=== PATIENT | female | born 1995 | race Hispanic/Latino ===

== ENCOUNTER 2020-09-30 22:09 | Inpatient (IN) | payer OTHER ==
[~2020-09-30] VITALS: Ht 157.5 cm; Wt 78.3 kg
[2020-09-30 22:23] VITALS: BP 138/88
[2020-09-30] MEDS ORDERED: LACTATED RINGER'S 1000 ML IV STA (22:28)
[2020-09-30] MEDS ORDERED: OXYTOCIN DRIP 30 UNITS in IV 1 EA IV PRN (22:30)
[2020-09-30] MEDS ORDERED: LR 1,000 ML IV SCH (22:30)
[2020-09-30] MEDS ORDERED: OXYTOCIN 30 UNITS IN 0.9% NaCl 500ML IV BAG (J2590) As Ordered ONE (22:34)
[2020-09-30 22:44] LABS: HEMATOCRIT 33.6 % (36.0-47.0); HEMOGLOBIN 10.7 g/dl (12.0-15.5); MEAN CORPUSCULAR HEMOGLOBIN 26.1 pg (27.0-33.0); MEAN CORPUSCULAR HGB CONC 31.8 g/dl (32.0-36.5); PLATELET COUNT, AUTOMATED 293 10^3/uL (150-450); WHITE BLOOD COUNT 12.1 10^3/uL (4.0-10.0)
[2020-09-30] MEDS ORDERED: LIDOCAINE 1% MDV 20ML VIAL As Ordered ONE (22:46)
[2020-09-30 22:49] VITALS: BP 134/60
[2020-09-30] MEDS ORDERED: RHOGAM 300 MCG (1500 IU) INJ (J2790) IM SCH (23:05)
[2020-09-30] MEDS ORDERED: ACETAMINOPHEN 500 MG TAB PO PRN (23:05)
[2020-09-30] MEDS ORDERED: PROMETHAZINE 25 MG TAB PO PRN (23:05)
[2020-09-30] MEDS ORDERED: IBUPROFEN 800 MG TAB PO PRN (23:05)
[2020-09-30] MEDS ORDERED: ACETAMINOPHEN TAB 650MG DOSE (2X325MG) PO PRN (23:05)
[2020-09-30] MEDS ORDERED: IBUPROFEN 600MG TAB PO PRN (23:05)
[2020-09-30] MEDS ORDERED: MEASLES,MUMPS,RUBELLA VACCINE INJ (MMR-II) (90707) SC SCH (23:05)
[2020-09-30] MEDS ORDERED: DOCUSATE SODIUM 100MG CAPSULE PO PRN (23:05)
[2020-09-30] MEDS ORDERED: DIBUCAINE 1% OINTMENT 30GM TOP PRN (23:05)
[2020-09-30] MEDS ORDERED: LIDOCAINE 1% MDV 20ML VIAL IM ONE (23:05)
[2020-09-30 23:08] VITALS: BP 134/75
--- NOTE | 2020-09-30 23:12 | DNPDOC ---
[facility] Delivery Note Delivery Note DATE OF DELIVERY: 30Sep2020 at ~2245 PREDELIVERY DIAGNOSIS: 39+0 weeks gestation and active labor POST DELIVERY DIAGNOSIS: Delivered. 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 Rothman ANESTHESIA: None. ESTIMATED BLOOD LOSS: 200 mL. FINDINGS: 6lb 8 oz male infant, Score 9/9 DELIVERY SUMMARY: Maru presented to L&D in fulminant labor and precipitously delivered her infant. Cervical exam on presentation was Al/C/0. She felt a strong urge to push. AROM was performed productive of light meconium stained fluid. The bed was broken down and she was prepped for delivery. With excellent effort over 2 sets of pushes her baby delivered. Presentation was JERARDO with a compound right hand with then restitution to ROT. The left anterior shoulder then delivered with gentle traction followed easily by the remainder of the body. The was dried and stimulated on the field and a bulb suction was used. The was placed on the maternal abdomen and cried vigorously. The three vessel umbilical cord was then clamped and cut by Maru after appr opriate time delay and under my direction. Third stage was completed with gentle traction on on the cord and it was productive of an intact placenta. The uterus was firmed with massage and pitocin was administered IV bolus. Inspection of the cervix, vagina, labia, and perineum revealed a midline 2nd degree perineal laceration. This laceration was repaired with 3-0 vicryl suture in the usual fashion after injection of lidocaine for analgesia. There was excellent cosmesis and hemostasis after the repair. The fundus was palpated again and was firm. Sponge, instrument, and needle counts were correct X2. Mother and stable when I left the room. DO RAUDEL Gonzalez CHRISTOPHER J. DO Sep 30, 2020 23:12
--- NOTE | 2020-09-30 23:17 | HPEPDOC ---
Obstetrical History & Physical General Date of Admission Sep 30, 2020 at 22:30 History of Present Illness 24 yo presented to L&D in active labor and precipitously delivered her . See delivery note for details. Chief Complaint: Contractions, term Information Provided By: Patient Age: 24 : 2 Term: 1 Pre-term: 0 Abortions: 0 Livin Care Care: Good Care Dating Final EDC: Oct 07, 2020 Final EDC for Daily Update: Oct 07, 2020 Final EDC by: LMP Antepartum Course Diagnos(e)s Uncomplicated Past Medical History Past Obstetrical History : Past Obstetrical History: Multigravida ( at term in 2018) Type of Delivery: Spontaneous Vaginal Del. 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 ABDOMEN: Gravid and non-tender to touch. FETUS: Is vertex (VTX) by sterile vaginal examination (SVE), fetus is vertex EXTREMITIES: No edema. Laboratory Data 24H LABS Laboratory Tests 2 09/30/20 22:30: Nucleated Red Blood Cells % (auto) 0.0 09/30/20 23:02: Serology Scanned Report Hepatitis B Testing CBC/BMP Laboratory Tests 09/30/20 22:30 Urine Culture: No Growth Pertinent Laboratoy Data Blood Type: A+ RBC Antibody Screen: Negative HIV: Negative Hepatitis B: Negative Hepatitis C: Unknown Rapid Plasma Reagin: Nonreactive Rubella: Immune Varicella: Immune Chlamydia/Gonorrhea: Negative Group B Streptococcus: Negative Quad Screen Test: Negative Cystic Fibrosis: Unknown Glucose Tolerance Test: 104 Anatomy Ultrasound Placenta Location: Anterior Normal Anatomy: Yes Placenta Previa: No Steroid Therapy Steroid Therapy: No Vaginal Examination Dilation: 9 cm Effacement: 100% Station: 0 Cervical Consistency: Soft Cervical Position: Anterior Presentation: Cephalic presentation Position: Vertex (occiput) Assessment Heart Rate (FHR): 125 Variability: Moderate Accelerations: Positive Decelerations: None Tocometer Contractions: Yes Frequency: regular Assessment/Plan Assessment 24 yo at 39+0 weeks gestation presented to L&D in active labor and precipitously delivered her infant. Plan Patient precipitously delivered. Uncomplicated. Initiate routine care. All questions answered. DO RAUDEL Gonzalez CHRISTOPHER J. DO Sep 30, 2020 23:17
[2020-09-30 23:23] VITALS: BP 144/70
[2020-09-30 23:39] VITALS: BP 155/70
[2020-10-01 00:37] VITALS: BP 123/60
[2020-10-01 06:00] VITALS: BP 105/59
--- NOTE | 2020-10-01 07:07 | IPNPDOC ---
Progress Note Date of Service: Oct 01, 2020 Progress Note Maru is a 24 yo G2 now P2 who underwent an uncomplicated late last night after being admitted for active labor. She is currently recovering on the unit. She reports feeling well this AM. She is ambulating, voiding, tolerating a regular diet, has minimal lochia, and minimal pain. Vitals - VSS, afebrile, normotensive, non tachycardic General - AAOX3, sitting up in bed , NAD, pleasant and conversant Abdomen - FUndus firm at U-2. No fundal tenderness Extremities - No edema Maru is doing well and is making an appropriate recovery. Plan to discharge home tomorrow if meeting all criteria. All questions answered. Stephan VS, I&O, 24H, Jaylin Vital Signs/I&O Vital Signs Date Time Temp Pulse Resp B/P (MAP) Pulse Ox O2 Delivery O2 Flow Rate FiO2 10/01/20 06:00 98.2 82 16 105/59 (74) 99 Room Air I&O- Last 24 Hours up to 6 AM 10/01/20 06:00 Output Total 200 ml Balance -200 ml Laboratory Data 24H LABS Laboratory Tests 2 09/30/20 22:30: Nucleated Red Blood Cells % (auto) 0.0 09/30/20 23:02: Serology Scanned Report Hepatitis B Testing CBC/BMP Laboratory Tests 09/30/20 22:30 GUSTAVO STARKS DO Oct 01, 2020 07:07
[2020-10-01] MEDS: PRENATAL VITAMINS CHEWABLE TABLET PO SCH (08:33)
[2020-10-01 18:08] VITALS: BP 141/81
[2020-10-01 22:29] LABS: HEMATOCRIT 30.3 % (36.0-47.0); HEMOGLOBIN 9.8 g/dl (12.0-15.5); MEAN CORPUSCULAR HEMOGLOBIN 27.1 pg (27.0-33.0); MEAN CORPUSCULAR HGB CONC 32.3 g/dl (32.0-36.5); MEAN CORPUSCULAR VOLUME 83.9 fl (80.0-96.0); PLATELET COUNT, AUTOMATED 271 10^3/uL (150-450); RED BLOOD COUNT 3.61 10^6/uL (4.00-5.40); WHITE BLOOD COUNT 11.6 10^3/uL (4.0-10.0)
[2020-10-01 22:57] LABS: ALBUMIN 2.6 GM/DL (3.2-5.2); ALT/SGPT 17 U/L (12-78); BILIRUBIN,TOTAL 0.2 MG/DL (0.2-1.0); BLOOD UREA NITROGEN 11 MG/DL (7-18); CALCIUM LEVEL 8.8 MG/DL (8.5-10.1); CARBON DIOXIDE LEVEL 25 MEQ/L (21-32); CHLORIDE LEVEL 108 MEQ/L (98-107); CREATININE FOR GFR 0.62 MG/DL (0.55-1.30); GLOMERULAR FILTRATION RATE > 60.0 (>60); GLUCOSE, FASTING 85 MG/DL (70-100); POTASSIUM SERUM 4.1 MEQ/L (3.5-5.1); SODIUM LEVEL 140 MEQ/L (136-145)
[2020-10-02 06:02] VITALS: BP 128/68
--- NOTE | 2020-10-02 06:38 | IPNPDOC ---
Progress Note Date of Service: Oct 02, 2020 Day#: 2 Progress Note Maru is a 24 yo G2 now P2 who underwent an uncomplicated now PPD2 after being admitted for active labor. She is currently recovering on the unit. She reports feeling well this AM. She is ambulating, voiding, tolerating a regular diet, has minimal lochia, and minimal pain. Vitals - VSS, afebrile, normotensive, non tachycardic General - AAOX3, sitting up in bed , NAD, pleasant and conversant Abdomen - FUndus firm at U-2. No fundal tenderness Extremities - No edema Maru is doing well and is making an appropriate recovery. Plan to discharge home today, meeting all criteria. All questions answered. Nelda VS, I&O, 24H, Jaylin Vital Signs/I&O Vital Signs Date Time Temp Pulse Resp B/P (MAP) Pulse Ox O2 Delivery O2 Flow Rate FiO2 10/01/20 18:08 98.0 60 16 141/81 (101) 10/01/20 06:00 99 Room Air I&O- Last 24 Hours up to 6 AM 10/02/20 06:00 Output Total 800 ml Balance -800 ml Laboratory Data 24H LABS Laboratory Tests 2 10/01/20 22:08: Nucleated Red Blood Cells % (auto) 0.0, Anion Gap 7L, Glomerular Filtration Rate > 60.0, Calcium Level 8.8, Total Bilirubin 0.2, Aspartate Amino Transf (AST/SG OT) 15, Alanine Aminotransferase (ALT/SGPT) 17, Alkaline Phosphatase 132H, Total Protein 6.0L, Albumin 2.6L, Albumin/Globulin Ratio 0.8L CBC/BMP Laboratory Tests 10/01/20 22:08 EDEN HOPKINS DO Oct 02, 2020 06:38
--- NOTE | 2020-10-02 06:39 | OBDS ---
[facility] Obstetrical Discharge Sum. A/P, Post Course List any complications DATE OF DELIVERY: 30Sep2020 at ~2245 PREDELIVERY DIAGNOSIS: 39+0 weeks gestation and active labor POST DELIVERY DIAGNOSIS: Delivered. 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 ESTIMATED BLOOD LOSS: 200 mL. FINDINGS: 6lb 8 oz male , Score 9/9 EDEN HOPKINS DO Oct 02, 2020 06:39
[2020-10-02] MEDS: PRENATAL VITAMINS CHEWABLE TABLET PO SCH (07:45)
== END 2020-10-02 13:30 | disposition home or self-care (01) | DRG 807 ==
LOC: M LDO 22:09 → M LDI 22:30 → M OBS 10-01 00:35 → M PED 10-01 16:44 → M OBS 10-01 16:49
PROVIDERS: ADMIT Obstetrics & Gynecology; ATTEND Obstetrics & Gynecology
PROC: 10E0XZZ Delivery of Products of Conception, External Approach (ICD-10-PCS; principal; 2020-09-30)
PROC: 0KQM0ZZ Repair Perineum Muscle, Open Approach (ICD-10-PCS; 2020-09-30)
PROC: 10907ZC Drainage of Amniotic Fluid, Therapeutic from Products of Conception, Via Natural or Artificial Opening (ICD-10-PCS; 2020-09-30)
DX: O62.3 Precipitate labor (principal); Z37.0 Single live birth; Z3A.39 39 weeks gestation of pregnancy; O70.1 Second degree perineal laceration during delivery

== ENCOUNTER 2021-09-28 12:05 | Emergency (ER) | payer OTHER ==
[~2021-09-28] VITALS: Ht 157.5 cm; Wt 75.0 kg
[2021-09-28] MEDS ORDERED: IBUPROFEN PRN (12:54)
[2021-09-28] MEDS ORDERED: ONDA4TAB6 PO (14:50)
[2021-09-28 15:12] VITALS: BP 124/57
== END 2021-09-28 15:20 | disposition home or self-care (01) ==
LOC: M ED 12:05
DX: A08.39 Other viral enteritis (principal)